=== PATIENT | female | born 1945 | race Caucasian/White ===

== ENCOUNTER 2017-08-09 18:57 | Emergency (ER) | payer MEDICARE, OTHER ==
[~2017-08-09] VITALS: Ht 162.6 cm; Wt 76.4 kg
[~2017-08-09 18:57] MED LIST: AMLO2.5T2 PO; BUSP10TA23 PO; CHOL2000 PO; EFFEXOR PO; FAMO-136 PO; FERR324T4 PO; FOLATE PO; LORA10TA7 PO; METO5TAB87 PO; MOME17N NASAL; MONT10TA21 PO; MULT-248 PO; OXYB10TA4 PO; OXYC-158 PO; TEMA15CA PO; THIA100T67; TIOT185 IH
[2017-08-09 19:13] LABS: GLUCOSE,POINT OF CARE 124 MG/DL (70-110)
[2017-08-09] MEDS ORDERED: VENL-67 PO (19:19)
[2017-08-09] MEDS ORDERED: FOLI1 PO (19:19)
[2017-08-09] MEDS ORDERED: CARV3 PO (19:19)
[2017-08-09] MEDS ORDERED: METF500T6 PO (19:19)
[2017-08-09] MEDS ORDERED: TRAZ-144 PO (19:19)
[2017-08-09] MEDS ORDERED: HYDROCODONE/ACETAMINOPHEN 5-325 MG TABLET PO ONE (19:45)
[2017-08-09 21:05] VITALS: BP 148/90
== END 2017-08-09 21:25 | disposition home or self-care (01) ==
LOC: EMS 18:58
DX: M54.5 Low back pain (principal); G89.29 Other chronic pain; F31.9 Bipolar disorder, unspecified; I11.0 Hypertensive heart disease with heart failure; I50.9 Heart failure, unspecified; E78.00 Pure hypercholesterolemia, unspecified; I25.10 Atherosclerotic heart disease of native coronary artery without angina pectoris; K21.9 Gastro-esophageal reflux disease without esophagitis; J44.9 Chronic obstructive pulmonary disease, unspecified; F17.210 Nicotine dependence, cigarettes, uncomplicated; Z88.8 Allergy status to other drugs, medicaments and biological substances
CPT/HCPCS: 99283

== ENCOUNTER 2017-08-24 18:43 | Emergency (ER) | payer MEDICARE, OTHER ==
[~2017-08-24] VITALS: Ht 162.6 cm; Wt 68.2 kg
[~2017-08-24 18:43] MED LIST changes: +CARV3 PO; -CHOL2000 PO; -EFFEXOR PO; -FERR324T4 PO; -FOLATE PO; +FOLI1 PO; -LORA10TA7 PO; +METF500T6 PO; -MOME17N NASAL; -MULT-248 PO; -OXYB10TA4 PO; -TEMA15CA PO; -THIA100T67; -TIOT185 IH; +TRAZ-144 PO; +VENL-67 PO
[2017-08-24] MEDS ORDERED: OxyCODONE HCL/ACETAMINOPHEN 5-325 MG TABLET PO ONE (19:30)
[2017-08-24 20:21] VITALS: BP 180/84
== END 2017-08-24 21:10 | disposition home or self-care (01) ==
LOC: EMS 18:45
DX: S86.911A Strain of unspecified muscle(s) and tendon(s) at lower leg level, right leg, initial encounter (principal); M17.0 Bilateral primary osteoarthritis of knee; I11.0 Hypertensive heart disease with heart failure; I50.9 Heart failure, unspecified; E78.00 Pure hypercholesterolemia, unspecified; I25.10 Atherosclerotic heart disease of native coronary artery without angina pectoris; K21.9 Gastro-esophageal reflux disease without esophagitis; J44.9 Chronic obstructive pulmonary disease, unspecified; F17.210 Nicotine dependence, cigarettes, uncomplicated; Z88.8 Allergy status to other drugs, medicaments and biological substances; X58.XXXA Exposure to other specified factors, initial encounter; Y93.89 Activity, other specified; Y92.89 Other specified places as the place of occurrence of the external cause; Y99.8 Other external cause status
CPT/HCPCS: 29505; 29530; 99283; 99406

== ENCOUNTER 2017-09-24 23:14 | Inpatient (IN) | payer MEDICARE, OTHER ==
[~2017-09-24] VITALS: Ht 170.2 cm; Wt 67.7 kg
[~2017-09-24 23:14] MED LIST changes: -TRAZ-144 PO; +TRAZ-219 PO
[2017-09-24 23:58] LABS: GLUCOSE,POINT OF CARE 119 MG/DL (70-110)
[2017-09-25 00:24] LABS: BASOPHILS % (AUTO) 1.3 % (0.0-2.0); EOSINOPHILS % (AUTO) 2.8 % (1.0-6.0); HEMATOCRIT 38.2 % (36-46); LYMPHOCYTES # (AUTO) 2.5 K/uL (1.0-4.8); LYMPHOCYTES % (AUTO) 25.4 % (22.0-44.0); MEAN CORPUSCULAR HEMOGLOBIN 29.1 pg (26.0-34.0); MEAN CORPUSCULAR HGB CONC 34.1 G/dL (31.0-37.0); MEAN CORPUSCULAR VOLUME 85 fL (80-100); MONOCYTES # (AUTO) 1.1 K/uL (0.1-1.0); MONOCYTES % (AUTO) 10.9 % (2.0-9.0); NEUTROPHILS # (AUTO) 5.9 K/uL (1.8-7.7); NEUTROPHILS % (AUTO) 59.6 % (40.0-70.0); PLATELET COUNT (AUTO) 286 K/uL (150-450); RED BLOOD CELL COUNT(AUTO) 4.48 MIL/uL (4.00-5.20); RED CELL DISTRIBUTION WIDTH 13.7 % (11.5-14.5)
[2017-09-25 00:28] LABS: APPEARANCE,URINE CLOUDY (CLEAR); BILIRUBIN,URINE NEGATIVE (NEGATIVE); GLUCOSE, URINE (UA) NEGATIVE (NEGATIVE); KETONES,URINE NEGATIVE (NEGATIVE); LEUKOCYTE ESTERASE ,URINE LARGE (NEGATIVE); NITRATE,URINE NEGATIVE (NEGATIVE); OCCULT BLOOD,URINE SMALL (NEGATIVE); PROTEIN,URINE NEGATIVE (NEGATIVE); UROBILINOGEN,URINE 0.2 mg/dL (<=1.0)
[2017-09-25 00:33] LABS: AMPHET/METH SCREEN,URINE NEGATIVE (NEGATIVE); BARBITURATE SCREEN, URINE NEGATIVE (NEGATIVE); BENZODIAZEPINES SCREEN,URINE NEGATIVE (NEGATIVE); CANNABINOID SCREEN,URINE NEGATIVE (NEGATIVE); COCAINE SCREEN,URINE NEGATIVE (NEGATIVE); METHADONE SCREEN, URINE NEGATIVE (NEGATIVE); OPIATE SCREEN,URINE NEGATIVE (NEGATIVE); PHENCYCLIDINE SCREEN,URINE NEGATIVE (NEGATIVE)
[2017-09-25 00:34] LABS: ANION GAP 7 mmol/L (8-16); CALCIUM, TOTAL 9.4 mg/dL (8.8-10.5); CARBON DIOXIDE 29 mmol/L (22-29); CHLORIDE 101 mmol/L (98-107); CREATININE 0.73 mg/dL (0.60-1.30); GLOMERULAR FILTR. RATE CALC > 60 mL/min (>60); GLUCOSE,RANDOM 117 mg/dL (70-110); POTASSIUM 3.3 mmol/L (3.5-5.1); SODIUM SERUM 137 mmol/L (136-145); UREA NITROGEN, BLOOD 10 mg/dL (7-18)
[2017-09-25 00:36] LABS: BACTERIA,URINE Rare /HPF (None Seen); SQUAMOUS EPITHELIAL CELL,UR Rare /LPF (None Seen)
[2017-09-25 00:39] LABS: ALANINE AMINOTRANSFERASE 25 U/L (12-78); ALBUMIN 3.3 g/dL (3.4-5.0); ALKALINE PHOSPHATASE 73 U/L (46-116); ASPARTATE AMINOTRANSFERASE 20 U/L (15-37); BILIRUBIN,TOTAL 0.2 mg/dL (0.1-1.0); TOTAL PROTEIN, SERUM 6.7 g/dL (6.4-8.2)
[2017-09-25] MEDS ORDERED: PIPERACILLIN/TAZO 3.375 GM/D5W 50 ML IV ONE (01:45)
[2017-09-25] MEDS ORDERED: 0.9% SODIUM CHLORIDE 10 ML SYRINGE IVP PRN (02:45)
[2017-09-25] MEDS ORDERED: ONDANSETRON HCL 4 MG/2 ML VIAL IVP PRN ×2 (02:45→08:30)
[2017-09-25] MEDS ORDERED: ACETAMINOPHEN 325 MG TABLET PO PRN (02:45)
[2017-09-25] MEDS ORDERED: GLUCAGON,HUMAN RECOMBINANT 1 MG VIAL IM PRN (08:30)
[2017-09-25] MEDS: IPRATROPIUM BROMIDE 0.5 MG/2.5 ML NEB SOLUTION NEB SCH ×3 (08:30→20:00)
[2017-09-25] MEDS ORDERED: INSULIN LISPRO 100 UNITS/ML SQ PRN (08:30)
[2017-09-25] MEDS ORDERED: ZOLPIDEM TARTRATE 5 MG TABLET PO PRN (08:30)
[2017-09-25] MEDS: ALBUTEROL SULFATE 2.5 MG/0.5 ML NEB SOLUTION NEB SCH ×3 (08:30→20:00)
[2017-09-25] MEDS ORDERED: AmLODIPine BESYLATE 2.5 MG TABLET PO SCH (09:00)
[2017-09-25 09:16] VITALS: BP 164/66
[2017-09-25 09:16] LABS: THYROID STIMULATING HORMONE 3.06 uIU/mL (0.36-3.74)
[2017-09-25] MEDS: HEPARIN SODIUM,PORCINE 5,000 UNITS/ML VIAL SQ SCH ×2 (09:45→17:05)
[2017-09-25] MEDS: CARVEDILOL 3.125 MG TABLET PO SCH (09:46)
[2017-09-25] MEDS: OxyCODONE HCL/ACETAMINOPHEN 5-325 MG TABLET PO SCH ×3 (09:46→20:32)
[2017-09-25] MEDS: FOLIC ACID 1 MG TABLET PO SCH (09:46)
[2017-09-25] MEDS: AmLODIPine BESYLATE 5 MG TABLET PO SCH (09:47)
[2017-09-25] MEDS: IPRATROPIUM BROMIDE 0.5 MG/2.5 ML NEB SOLUTION NEB PRN (11:20)
[2017-09-25] MEDS: ALBUTEROL SULFATE 2.5 MG/0.5 ML NEB SOLUTION NEB PRN (11:20)
[2017-09-25 11:44] VITALS: BP 142/57
[2017-09-25 12:04] LABS: GLUCOMETER DEV NAME(LOC) 6N 1E; GLUCOSE,POINT OF CARE 114 MG/DL (70-110)
[2017-09-25] MEDS: VENLAFAXINE HCL 75 MG ER CAPSULE PO SCH (14:39)
[2017-09-25] MEDS: MONTELUKAST SODIUM 10 MG TABLET PO SCH (14:40)
[2017-09-25] MEDS: BusPIRone HCL 10 MG TABLET PO SCH ×3 (14:40→20:31)
[2017-09-25] MEDS: METOCLOPRAMIDE HCL 5 MG TABLET PO SCH ×3 (14:40→20:31)
[2017-09-25 15:43] VITALS: BP 124/59
[2017-09-25] MEDS: MetFORMIN HCL 500 MG TABLET PO SCH (17:05)
[2017-09-25 19:59] VITALS: BP 150/61
[2017-09-25 20:23] LABS: GLUCOMETER DEV NAME(LOC) 6N 2D; GLUCOSE,POINT OF CARE 105 MG/DL (70-110)
[2017-09-25] MEDS: TraZODone HCL 50 MG TABLET PO SCH (20:32)
[2017-09-25] MEDS ORDERED: DEXTROSE 50%-WATER 25 GM/50 ML SYG IVP PRN (21:00)
[2017-09-25 23:50] VITALS: BP 138/65
[2017-09-26] MEDS: HEPARIN SODIUM,PORCINE 5,000 UNITS/ML VIAL SQ SCH ×3 (00:14→16:30)
[2017-09-26 01:48] LABS: GLUCOMETER DEV NAME(LOC) 6N 1E; GLUCOSE,POINT OF CARE 133 MG/DL (70-110)
[2017-09-26] MEDS: ALBUTEROL SULFATE 2.5 MG/0.5 ML NEB SOLUTION NEB SCH ×4 (02:00→20:00)
[2017-09-26] MEDS: IPRATROPIUM BROMIDE 0.5 MG/2.5 ML NEB SOLUTION NEB SCH ×4 (02:00→20:00)
[2017-09-26] MEDS: OxyCODONE HCL/ACETAMINOPHEN 5-325 MG TABLET PO SCH ×4 (02:30→20:15)
[2017-09-26 06:10] LABS: BASOPHILS % (AUTO) 0.9 % (0.0-2.0); EOSINOPHILS % (AUTO) 3.6 % (1.0-6.0); HEMATOCRIT 36.5 % (36-46); HEMOGLOBIN 12.5 g/dL (12.0-16.0); LYMPHOCYTES % (AUTO) 35.5 % (22.0-44.0); MEAN CORPUSCULAR HEMOGLOBIN 29.8 pg (26.0-34.0); MEAN CORPUSCULAR HGB CONC 34.4 G/dL (31.0-37.0); MEAN CORPUSCULAR VOLUME 87 fL (80-100); MONOCYTES % (AUTO) 11.6 % (2.0-9.0); NEUTROPHILS % (AUTO) 48.4 % (40.0-70.0); PLATELET COUNT (AUTO) 269 K/uL (150-450); RED BLOOD CELL COUNT(AUTO) 4.21 MIL/uL (4.00-5.20); RED CELL DISTRIBUTION WIDTH 13.7 % (11.5-14.5)
[2017-09-26 06:15] LABS: ANION GAP 6 mmol/L (8-16); CALCIUM, TOTAL 9.3 mg/dL (8.8-10.5); CARBON DIOXIDE 29 mmol/L (22-29); CHLORIDE 103 mmol/L (98-107); CREATININE 0.81 mg/dL (0.60-1.30); GLOMERULAR FILTR. RATE CALC > 60 mL/min (>60); GLUCOSE,RANDOM 99 mg/dL (70-110); POTASSIUM 3.9 mmol/L (3.5-5.1); SODIUM SERUM 138 mmol/L (136-145); UREA NITROGEN, BLOOD 16 mg/dL (7-18)
[2017-09-26 07:04] LABS: GLUCOMETER DEV NAME(LOC) 6N 1E; GLUCOSE,POINT OF CARE 100 MG/DL (70-110)
[2017-09-26 07:45] VITALS: BP 141/57
[2017-09-26] MEDS: CARVEDILOL 3.125 MG TABLET PO SCH (08:42)
[2017-09-26] MEDS: AmLODIPine BESYLATE 5 MG TABLET PO SCH (08:42)
[2017-09-26] MEDS: FOLIC ACID 1 MG TABLET PO SCH (08:42)
[2017-09-26] MEDS: MetFORMIN HCL 500 MG TABLET PO SCH ×2 (08:42→18:12)
[2017-09-26] MEDS: VENLAFAXINE HCL 75 MG ER CAPSULE PO SCH (08:43)
[2017-09-26] MEDS: METOCLOPRAMIDE HCL 5 MG TABLET PO SCH ×3 (08:43→20:15)
[2017-09-26] MEDS: MONTELUKAST SODIUM 10 MG TABLET PO SCH (08:43)
[2017-09-26] MEDS: BusPIRone HCL 10 MG TABLET PO SCH ×3 (08:43→20:15)
[2017-09-26] MEDS ORDERED: MAGNESIUM SULFATE 4 GM/WATER 100 ML IV PRN (10:15)
[2017-09-26] MEDS ORDERED: MAGNESIUM SULFATE 2 GM/WATER 50 ML IV PRN (10:15)
[2017-09-26] MEDS: MAGNESIUM OXIDE 400 MG TABLET PO PRN ×3 (10:49→18:12)
[2017-09-26 11:18] VITALS: BP 126/64
[2017-09-26] MEDS: INSULIN LISPRO 100 UNITS/ML SQ PRN ×2 (11:35→17:12)
[2017-09-26] MEDS: CefTRIAXone SODIUM 1 GM in DEXTROSE 5%-WATER 10 ML IV SCH (11:42)
[2017-09-26 15:18] LABS: GLUCOMETER DEV NAME(LOC) 6N 1E; GLUCOSE,POINT OF CARE 88 MG/DL (70-110)
[2017-09-26 15:55] VITALS: BP 147/68
[2017-09-26 17:59] LABS: GLUCOMETER DEV NAME(LOC) 6N 1E; GLUCOSE,POINT OF CARE 74 MG/DL (70-110)
[2017-09-26 19:00] VITALS: BP 141/60
[2017-09-26] MEDS: TraZODone HCL 50 MG TABLET PO SCH (20:15)
[2017-09-26] MEDS: ALBUTEROL SULFATE 2.5 MG/0.5 ML NEB SOLUTION NEB PRN (21:34)
[2017-09-26] MEDS: IPRATROPIUM BROMIDE 0.5 MG/2.5 ML NEB SOLUTION NEB PRN (21:34)
[2017-09-26 21:59] LABS: GLUCOMETER DEV NAME(LOC) 6N 1E; GLUCOSE,POINT OF CARE 138 MG/DL (70-110)
[2017-09-27] VITALS (7 sets, daily range): BP systolic 128–147; BP diastolic 54–101
[2017-09-27] MEDS: HEPARIN SODIUM,PORCINE 5,000 UNITS/ML VIAL SQ SCH ×4 (00:12→23:26)
[2017-09-27] MEDS: IPRATROPIUM BROMIDE 0.5 MG/2.5 ML NEB SOLUTION NEB SCH ×4 (02:00→19:53)
[2017-09-27] MEDS: ALBUTEROL SULFATE 2.5 MG/0.5 ML NEB SOLUTION NEB SCH ×4 (02:00→19:52)
[2017-09-27] MEDS: OxyCODONE HCL/ACETAMINOPHEN 5-325 MG TABLET PO SCH ×4 (02:30→20:10)
[2017-09-27 06:09] LABS: BASOPHILS % (AUTO) 1.3 % (0.0-2.0); EOSINOPHILS % (AUTO) 3.7 % (1.0-6.0); HEMATOCRIT 35.7 % (36-46); HEMOGLOBIN 12.3 g/dL (12.0-16.0); LYMPHOCYTES % (AUTO) 40.8 % (22.0-44.0); MEAN CORPUSCULAR HEMOGLOBIN 29.5 pg (26.0-34.0); MEAN CORPUSCULAR HGB CONC 34.4 G/dL (31.0-37.0); MEAN CORPUSCULAR VOLUME 86 fL (80-100); MONOCYTES # (AUTO) 0.7 K/uL (0.1-1.0); MONOCYTES % (AUTO) 9.5 % (2.0-9.0); NEUTROPHILS # (AUTO) 3.3 K/uL (1.8-7.7); NEUTROPHILS % (AUTO) 44.7 % (40.0-70.0); PLATELET COUNT (AUTO) 288 K/uL (150-450); RED BLOOD CELL COUNT(AUTO) 4.16 MIL/uL (4.00-5.20); RED CELL DISTRIBUTION WIDTH 13.4 % (11.5-14.5)
[2017-09-27 06:20] LABS: ANION GAP 6 mmol/L (8-16); CALCIUM, TOTAL 9.5 mg/dL (8.8-10.5); CARBON DIOXIDE 30 mmol/L (22-29); CHLORIDE 102 mmol/L (98-107); CREATININE 0.71 mg/dL (0.60-1.30); GLOMERULAR FILTR. RATE CALC > 60 mL/min (>60); GLUCOSE,RANDOM 87 mg/dL (70-110); POTASSIUM 4.4 mmol/L (3.5-5.1); SODIUM SERUM 138 mmol/L (136-145); UREA NITROGEN, BLOOD 15 mg/dL (7-18)
[2017-09-27 06:58] LABS: GLUCOMETER DEV NAME(LOC) 6N 2D; GLUCOSE,POINT OF CARE 90 MG/DL (70-110)
[2017-09-27] MEDS: MetFORMIN HCL 500 MG TABLET PO SCH ×2 (08:31→18:05)
[2017-09-27] MEDS: BusPIRone HCL 10 MG TABLET PO SCH ×3 (08:33→20:11)
[2017-09-27] MEDS: FOLIC ACID 1 MG TABLET PO SCH (08:34)
[2017-09-27] MEDS: AmLODIPine BESYLATE 5 MG TABLET PO SCH (08:34)
[2017-09-27] MEDS: VENLAFAXINE HCL 75 MG ER CAPSULE PO SCH (08:34)
[2017-09-27] MEDS: CARVEDILOL 3.125 MG TABLET PO SCH (08:34)
[2017-09-27] MEDS: MONTELUKAST SODIUM 10 MG TABLET PO SCH (08:35)
[2017-09-27] MEDS: METOCLOPRAMIDE HCL 5 MG TABLET PO SCH ×3 (08:35→20:10)
[2017-09-27] MEDS: CefTRIAXone SODIUM 1 GM in DEXTROSE 5%-WATER 10 ML IV SCH (10:41)
[2017-09-27 11:34] LABS: GLUCOMETER DEV NAME(LOC) 6N 2D; GLUCOSE,POINT OF CARE 192 MG/DL (70-110)
[2017-09-27] MEDS: INSULIN LISPRO 100 UNITS/ML SQ PRN ×2 (11:42→20:16)
[2017-09-27 17:49] LABS: GLUCOMETER DEV NAME(LOC) 6N 1E; GLUCOSE,POINT OF CARE 115 MG/DL (70-110)
[2017-09-27] MEDS: TraZODone HCL 50 MG TABLET PO SCH (20:11)
[2017-09-27 20:43] LABS: GLUCOMETER DEV NAME(LOC) 6N 2D; GLUCOSE,POINT OF CARE 146 MG/DL (70-110)
[2017-09-28] MEDS: OxyCODONE HCL/ACETAMINOPHEN 5-325 MG TABLET PO SCH ×4 (02:18→20:29)
[2017-09-28] MEDS: IPRATROPIUM BROMIDE 0.5 MG/2.5 ML NEB SOLUTION NEB SCH ×4 (03:25→19:18)
[2017-09-28] MEDS: ALBUTEROL SULFATE 2.5 MG/0.5 ML NEB SOLUTION NEB SCH ×4 (03:25→19:19)
[2017-09-28 04:00] VITALS: BP 122/55
[2017-09-28 05:33] LABS: GLUCOMETER DEV NAME(LOC) 6N 1E; GLUCOSE,POINT OF CARE 94 MG/DL (70-110)
[2017-09-28 07:28] VITALS: BP 146/66
[2017-09-28 09:05] LABS: BASOPHILS % (AUTO) 1.2 % (0.0-2.0); EOSINOPHILS % (AUTO) 3.5 % (1.0-6.0); HEMATOCRIT 36.1 % (36-46); HEMOGLOBIN 12.2 g/dL (12.0-16.0); LYMPHOCYTES # (AUTO) 2.4 K/uL (1.0-4.8); MEAN CORPUSCULAR HEMOGLOBIN 29.1 pg (26.0-34.0); MEAN CORPUSCULAR HGB CONC 33.9 G/dL (31.0-37.0); MEAN CORPUSCULAR VOLUME 86 fL (80-100); MONOCYTES # (AUTO) 0.6 K/uL (0.1-1.0); MONOCYTES % (AUTO) 9.2 % (2.0-9.0); NEUTROPHILS # (AUTO) 3.1 K/uL (1.8-7.7); NEUTROPHILS % (AUTO) 48.1 % (40.0-70.0); PLATELET COUNT (AUTO) 288 K/uL (150-450); RED CELL DISTRIBUTION WIDTH 13.6 % (11.5-14.5)
[2017-09-28 09:30] LABS: ANION GAP 3 mmol/L (8-16); CALCIUM, TOTAL 9.4 mg/dL (8.8-10.5); CARBON DIOXIDE 32 mmol/L (22-29); CHLORIDE 102 mmol/L (98-107); CREATININE 0.79 mg/dL (0.60-1.30); GLOMERULAR FILTR. RATE CALC > 60 mL/min (>60); GLUCOSE,RANDOM 94 mg/dL (70-110); POTASSIUM 4.2 mmol/L (3.5-5.1); SODIUM SERUM 137 mmol/L (136-145); UREA NITROGEN, BLOOD 17 mg/dL (7-18)
[2017-09-28] MEDS: AmLODIPine BESYLATE 5 MG TABLET PO SCH (09:52)
[2017-09-28] MEDS: CARVEDILOL 3.125 MG TABLET PO SCH (09:52)
[2017-09-28] MEDS: MetFORMIN HCL 500 MG TABLET PO SCH ×2 (09:52→18:02)
[2017-09-28] MEDS: FOLIC ACID 1 MG TABLET PO SCH (09:52)
[2017-09-28] MEDS: METOCLOPRAMIDE HCL 5 MG TABLET PO SCH ×3 (09:53→20:30)
[2017-09-28] MEDS: VENLAFAXINE HCL 75 MG ER CAPSULE PO SCH (09:53)
[2017-09-28] MEDS: MONTELUKAST SODIUM 10 MG TABLET PO SCH (09:53)
[2017-09-28] MEDS: HEPARIN SODIUM,PORCINE 5,000 UNITS/ML VIAL SQ SCH ×2 (09:53→17:18)
[2017-09-28] MEDS: BusPIRone HCL 10 MG TABLET PO SCH ×3 (09:53→20:30)
[2017-09-28] MEDS: CefTRIAXone SODIUM 1 GM in DEXTROSE 5%-WATER 10 ML IV SCH (09:55)
[2017-09-28 12:24] LABS: GLUCOMETER DEV NAME(LOC) 6N 2D; GLUCOSE,POINT OF CARE 108 MG/DL (70-110)
[2017-09-28 12:30] VITALS: BP 122/56
[2017-09-28 15:57] VITALS: BP 131/63
[2017-09-28] MEDS: MAGNESIUM HYDROXIDE SUSPENSION 30 ML UDCUP PO PRN (17:44)
[2017-09-28 18:54] LABS: GLUCOMETER DEV NAME(LOC) 6N 2D; GLUCOSE,POINT OF CARE 122 MG/DL (70-110)
[2017-09-28 19:26] VITALS: BP 154/67
[2017-09-28] MEDS: TraZODone HCL 50 MG TABLET PO SCH (20:30)
[2017-09-28] MEDS: INSULIN LISPRO 100 UNITS/ML SQ PRN (20:37)
[2017-09-28 21:13] LABS: GLUCOMETER DEV NAME(LOC) 6N 2D; GLUCOSE,POINT OF CARE 144 MG/DL (70-110)
[2017-09-28 23:52] VITALS: BP 95/43
[2017-09-29] MEDS: HEPARIN SODIUM,PORCINE 5,000 UNITS/ML VIAL SQ SCH ×4 (00:10→23:09)
[2017-09-29] MEDS: ALBUTEROL SULFATE 2.5 MG/0.5 ML NEB SOLUTION NEB SCH ×4 (02:00→19:54)
[2017-09-29] MEDS: IPRATROPIUM BROMIDE 0.5 MG/2.5 ML NEB SOLUTION NEB SCH ×4 (02:00→19:54)
[2017-09-29] MEDS: OxyCODONE HCL/ACETAMINOPHEN 5-325 MG TABLET PO SCH ×4 (02:30→19:39)
[2017-09-29 05:17] VITALS: BP 118/46
[2017-09-29 07:54] LABS: GLUCOMETER DEV NAME(LOC) 6N 1E; GLUCOSE,POINT OF CARE 91 MG/DL (70-110)
[2017-09-29 08:00] VITALS: BP 147/57
[2017-09-29] MEDS: FOLIC ACID 1 MG TABLET PO SCH (08:47)
[2017-09-29] MEDS: METOCLOPRAMIDE HCL 5 MG TABLET PO SCH ×3 (08:47→19:38)
[2017-09-29] MEDS: MONTELUKAST SODIUM 10 MG TABLET PO SCH (08:47)
[2017-09-29] MEDS: VENLAFAXINE HCL 75 MG ER CAPSULE PO SCH (08:47)
[2017-09-29] MEDS: BusPIRone HCL 10 MG TABLET PO SCH ×3 (08:47→19:39)
[2017-09-29] MEDS: AmLODIPine BESYLATE 5 MG TABLET PO SCH (08:47)
[2017-09-29] MEDS: MetFORMIN HCL 500 MG TABLET PO SCH ×2 (08:47→18:16)
[2017-09-29] MEDS: CARVEDILOL 3.125 MG TABLET PO SCH (08:47)
[2017-09-29] MEDS: MAGNESIUM HYDROXIDE SUSPENSION 30 ML UDCUP PO PRN (09:13)
[2017-09-29] MEDS: CefTRIAXone SODIUM 1 GM in DEXTROSE 5%-WATER 10 ML IV SCH (11:08)
[2017-09-29 11:36] VITALS: BP 151/72
[2017-09-29 15:48] VITALS: BP 139/61
[2017-09-29] MEDS: TraZODone HCL 50 MG TABLET PO SCH (19:39)
[2017-09-29 19:43] VITALS: BP 141/74
[2017-09-29 20:02] LABS: GLUCOMETER DEV NAME(LOC) 6N 1E; GLUCOSE,POINT OF CARE 106 MG/DL (70-110)
[2017-09-29 20:02] LABS: GLUCOMETER DEV NAME(LOC) 6N 1E; GLUCOSE,POINT OF CARE 99 MG/DL (70-110)
[2017-09-29] MEDS: INSULIN LISPRO 100 UNITS/ML SQ PRN (20:09)
[2017-09-29 20:24] LABS: GLUCOMETER DEV NAME(LOC) 6N 2D; GLUCOSE,POINT OF CARE 175 MG/DL (70-110)
[2017-09-30 00:15] VITALS: BP 125/68
[2017-09-30] MEDS: IPRATROPIUM BROMIDE 0.5 MG/2.5 ML NEB SOLUTION NEB SCH ×5 (02:00→20:24)
[2017-09-30] MEDS: ALBUTEROL SULFATE 2.5 MG/0.5 ML NEB SOLUTION NEB SCH ×5 (02:00→20:24)
[2017-09-30] MEDS: OxyCODONE HCL/ACETAMINOPHEN 5-325 MG TABLET PO SCH ×4 (02:35→20:13)
[2017-09-30 05:03] VITALS: BP 128/61
[2017-09-30 06:35] LABS: GLUCOMETER DEV NAME(LOC) 6N 2D; GLUCOSE,POINT OF CARE 114 MG/DL (70-110)
[2017-09-30 07:00] VITALS: BP 147/56
[2017-09-30] MEDS: HEPARIN SODIUM,PORCINE 5,000 UNITS/ML VIAL SQ SCH ×3 (08:00→23:40)
[2017-09-30] MEDS: MetFORMIN HCL 500 MG TABLET PO SCH ×2 (09:06→17:32)
[2017-09-30] MEDS: CARVEDILOL 3.125 MG TABLET PO SCH (09:07)
[2017-09-30] MEDS: BusPIRone HCL 10 MG TABLET PO SCH ×3 (09:07→20:10)
[2017-09-30] MEDS: AmLODIPine BESYLATE 5 MG TABLET PO SCH (09:08)
[2017-09-30] MEDS: VENLAFAXINE HCL 75 MG ER CAPSULE PO SCH (09:08)
[2017-09-30] MEDS: FOLIC ACID 1 MG TABLET PO SCH (09:08)
[2017-09-30] MEDS: METOCLOPRAMIDE HCL 5 MG TABLET PO SCH ×3 (09:09→20:10)
[2017-09-30] MEDS: MONTELUKAST SODIUM 10 MG TABLET PO SCH (09:09)
[2017-09-30] MEDS: CefTRIAXone SODIUM 1 GM in DEXTROSE 5%-WATER 10 ML IV SCH (11:17)
[2017-09-30 11:21] VITALS: BP 125/63
[2017-09-30 12:24] LABS: GLUCOMETER DEV NAME(LOC) 6N 1E; GLUCOSE,POINT OF CARE 108 MG/DL (70-110)
[2017-09-30 15:15] VITALS: BP 133/64
[2017-09-30] MEDS ORDERED: BISACODYL 10 MG RECTAL RECTAL SUPPOSITORY PR PRN (16:00)
[2017-09-30 17:54] LABS: GLUCOMETER DEV NAME(LOC) 6N 1E; GLUCOSE,POINT OF CARE 95 MG/DL (70-110)
[2017-09-30 19:41] VITALS: BP 141/72
[2017-09-30] MEDS: TraZODone HCL 50 MG TABLET PO SCH (20:10)
[2017-09-30 20:53] LABS: GLUCOMETER DEV NAME(LOC) 6N 2D; GLUCOSE,POINT OF CARE 110 MG/DL (70-110)
[2017-10-01 00:15] VITALS: BP 118/65
[2017-10-01] MEDS: IPRATROPIUM BROMIDE 0.5 MG/2.5 ML NEB SOLUTION NEB SCH ×4 (02:00→20:40)
[2017-10-01] MEDS: ALBUTEROL SULFATE 2.5 MG/0.5 ML NEB SOLUTION NEB SCH ×4 (02:00→20:40)
[2017-10-01] MEDS: OxyCODONE HCL/ACETAMINOPHEN 5-325 MG TABLET PO SCH ×4 (02:30→19:50)
[2017-10-01 04:25] VITALS: BP 121/59
[2017-10-01 06:53] LABS: GLUCOMETER DEV NAME(LOC) 6N 1E; GLUCOSE,POINT OF CARE 102 MG/DL (70-110)
[2017-10-01 08:00] VITALS: BP 133/66
[2017-10-01] MEDS: METOCLOPRAMIDE HCL 5 MG TABLET PO SCH ×3 (08:57→19:49)
[2017-10-01] MEDS: MONTELUKAST SODIUM 10 MG TABLET PO SCH (08:58)
[2017-10-01] MEDS: HEPARIN SODIUM,PORCINE 5,000 UNITS/ML VIAL SQ SCH ×3 (08:58→23:38)
[2017-10-01] MEDS: MetFORMIN HCL 500 MG TABLET PO SCH ×2 (08:58→17:15)
[2017-10-01] MEDS: AmLODIPine BESYLATE 5 MG TABLET PO SCH (08:58)
[2017-10-01] MEDS: FOLIC ACID 1 MG TABLET PO SCH (08:58)
[2017-10-01] MEDS: VENLAFAXINE HCL 75 MG ER CAPSULE PO SCH (08:58)
[2017-10-01] MEDS: CARVEDILOL 3.125 MG TABLET PO SCH (08:58)
[2017-10-01] MEDS: BusPIRone HCL 10 MG TABLET PO SCH ×3 (08:58→19:49)
[2017-10-01 12:26] VITALS: BP 138/63
[2017-10-01 12:53] LABS: GLUCOMETER DEV NAME(LOC) 6N 2D; GLUCOSE,POINT OF CARE 112 MG/DL (70-110)
[2017-10-01 15:37] VITALS: BP 146/74
[2017-10-01] MEDS: CefTRIAXone SODIUM 1 GM in DEXTROSE 5%-WATER 10 ML IV SCH (17:12)
[2017-10-01] MEDS: TraZODone HCL 50 MG TABLET PO SCH (19:49)
[2017-10-01 19:53] LABS: GLUCOMETER DEV NAME(LOC) 6N 2D; GLUCOSE,POINT OF CARE 94 MG/DL (70-110)
[2017-10-01] MEDS: INSULIN LISPRO 100 UNITS/ML SQ PRN (19:53)
[2017-10-01 20:20] VITALS: BP 131/87
[2017-10-02 00:16] VITALS: BP 118/63
[2017-10-02] MEDS: ALBUTEROL SULFATE 2.5 MG/0.5 ML NEB SOLUTION NEB SCH ×3 (02:00→19:36)
[2017-10-02] MEDS: IPRATROPIUM BROMIDE 0.5 MG/2.5 ML NEB SOLUTION NEB SCH ×3 (02:00→19:36)
[2017-10-02] MEDS: OxyCODONE HCL/ACETAMINOPHEN 5-325 MG TABLET PO SCH ×4 (02:30→20:24)
[2017-10-02 04:00] VITALS: BP 109/74
[2017-10-02 06:43] LABS: GLUCOMETER DEV NAME(LOC) 6N 1E; GLUCOSE,POINT OF CARE 221 MG/DL (70-110)
[2017-10-02 06:44] LABS: GLUCOMETER DEV NAME(LOC) 6N 1E; GLUCOSE,POINT OF CARE 79 MG/DL (70-110)
[2017-10-02 08:00] VITALS: BP 147/63
[2017-10-02] MEDS: CARVEDILOL 3.125 MG TABLET PO SCH (10:30)
[2017-10-02] MEDS: MetFORMIN HCL 500 MG TABLET PO SCH ×2 (10:30→18:13)
[2017-10-02] MEDS: BusPIRone HCL 10 MG TABLET PO SCH ×3 (10:31→20:25)
[2017-10-02] MEDS: AmLODIPine BESYLATE 5 MG TABLET PO SCH (10:31)
[2017-10-02] MEDS: MONTELUKAST SODIUM 10 MG TABLET PO SCH (10:31)
[2017-10-02] MEDS: METOCLOPRAMIDE HCL 5 MG TABLET PO SCH ×3 (10:31→20:24)
[2017-10-02] MEDS: VENLAFAXINE HCL 75 MG ER CAPSULE PO SCH (10:31)
[2017-10-02] MEDS: FOLIC ACID 1 MG TABLET PO SCH (10:31)
[2017-10-02] MEDS: HEPARIN SODIUM,PORCINE 5,000 UNITS/ML VIAL SQ SCH ×2 (10:33→16:30)
[2017-10-02] MEDS: CefTRIAXone SODIUM 1 GM in DEXTROSE 5%-WATER 10 ML IV SCH (11:19)
[2017-10-02 11:39] LABS: GLUCOMETER DEV NAME(LOC) 6N 2D; GLUCOSE,POINT OF CARE 179 MG/DL (70-110)
[2017-10-02] MEDS: INSULIN LISPRO 100 UNITS/ML SQ PRN (11:54)
[2017-10-02 12:04] VITALS: BP 124/58
[2017-10-02 15:45] VITALS: BP 140/55
[2017-10-02 17:49] LABS: GLUCOMETER DEV NAME(LOC) 6N 2D; GLUCOSE,POINT OF CARE 96 MG/DL (70-110)
[2017-10-02 19:55] VITALS: BP 141/69
[2017-10-02] MEDS: TraZODone HCL 50 MG TABLET PO SCH (20:25)
[2017-10-02 21:53] LABS: GLUCOMETER DEV NAME(LOC) 6N 2D; GLUCOSE,POINT OF CARE 131 MG/DL (70-110)
[2017-10-03] VITALS (7 sets, daily range): BP systolic 121–158; BP diastolic 48–72
[2017-10-03] MEDS: HEPARIN SODIUM,PORCINE 5,000 UNITS/ML VIAL SQ SCH ×4 (00:14→23:19)
[2017-10-03] MEDS: ALBUTEROL SULFATE 2.5 MG/0.5 ML NEB SOLUTION NEB SCH ×4 (02:00→20:48)
[2017-10-03] MEDS: IPRATROPIUM BROMIDE 0.5 MG/2.5 ML NEB SOLUTION NEB SCH ×4 (02:00→20:49)
[2017-10-03] MEDS: OxyCODONE HCL/ACETAMINOPHEN 5-325 MG TABLET PO SCH ×4 (02:30→20:14)
[2017-10-03 06:49] LABS: GLUCOMETER DEV NAME(LOC) 6N 1E; GLUCOSE,POINT OF CARE 106 MG/DL (70-110)
[2017-10-03] MEDS: MetFORMIN HCL 500 MG TABLET PO SCH ×2 (08:22→17:02)
[2017-10-03] MEDS: BusPIRone HCL 10 MG TABLET PO SCH ×3 (08:22→20:14)
[2017-10-03] MEDS: AmLODIPine BESYLATE 5 MG TABLET PO SCH (08:22)
[2017-10-03] MEDS: METOCLOPRAMIDE HCL 5 MG TABLET PO SCH ×3 (08:22→20:14)
[2017-10-03] MEDS: MONTELUKAST SODIUM 10 MG TABLET PO SCH (08:22)
[2017-10-03] MEDS: VENLAFAXINE HCL 75 MG ER CAPSULE PO SCH (08:22)
[2017-10-03] MEDS: CARVEDILOL 3.125 MG TABLET PO SCH (08:23)
[2017-10-03] MEDS: FOLIC ACID 1 MG TABLET PO SCH (08:24)
[2017-10-03 14:04] LABS: GLUCOMETER DEV NAME(LOC) 6N 2D; GLUCOSE,POINT OF CARE 94 MG/DL (70-110)
[2017-10-03 19:19] LABS: GLUCOMETER DEV NAME(LOC) 6N 2D; GLUCOSE,POINT OF CARE 114 MG/DL (70-110)
[2017-10-03] MEDS: TraZODone HCL 50 MG TABLET PO SCH (20:14)
[2017-10-03] MEDS: INSULIN LISPRO 100 UNITS/ML SQ PRN (20:15)
[2017-10-03 23:13] LABS: GLUCOMETER DEV NAME(LOC) 6N 1E; GLUCOSE,POINT OF CARE 199 MG/DL (70-110)
[2017-10-04] MEDS: IPRATROPIUM BROMIDE 0.5 MG/2.5 ML NEB SOLUTION NEB SCH ×4 (02:00→20:18)
[2017-10-04] MEDS: ALBUTEROL SULFATE 2.5 MG/0.5 ML NEB SOLUTION NEB SCH ×4 (02:00→20:18)
[2017-10-04] MEDS: OxyCODONE HCL/ACETAMINOPHEN 5-325 MG TABLET PO SCH ×4 (02:07→19:41)
[2017-10-04 04:35] VITALS: BP 130/61
[2017-10-04 06:03] LABS: GLUCOMETER DEV NAME(LOC) 6N 1E; GLUCOSE,POINT OF CARE 91 MG/DL (70-110)
[2017-10-04 08:00] VITALS: BP 137/65
[2017-10-04] MEDS: HEPARIN SODIUM,PORCINE 5,000 UNITS/ML VIAL SQ SCH ×2 (09:11→15:25)
[2017-10-04] MEDS: VENLAFAXINE HCL 75 MG ER CAPSULE PO SCH (09:12)
[2017-10-04] MEDS: METOCLOPRAMIDE HCL 5 MG TABLET PO SCH ×3 (09:12→19:41)
[2017-10-04] MEDS: MONTELUKAST SODIUM 10 MG TABLET PO SCH (09:12)
[2017-10-04] MEDS: CARVEDILOL 3.125 MG TABLET PO SCH (09:12)
[2017-10-04] MEDS: MetFORMIN HCL 500 MG TABLET PO SCH ×2 (09:12→17:05)
[2017-10-04] MEDS: FOLIC ACID 1 MG TABLET PO SCH (09:12)
[2017-10-04] MEDS: AmLODIPine BESYLATE 5 MG TABLET PO SCH (09:12)
[2017-10-04] MEDS: BusPIRone HCL 10 MG TABLET PO SCH ×3 (09:12→19:41)
[2017-10-04 11:40] VITALS: BP 128/60
[2017-10-04 14:03] LABS: GLUCOMETER DEV NAME(LOC) 6N 2D; GLUCOSE,POINT OF CARE 126 MG/DL (70-110)
[2017-10-04 15:10] VITALS: BP 122/62
[2017-10-04 19:37] VITALS: BP 141/64
[2017-10-04] MEDS: TraZODone HCL 50 MG TABLET PO SCH (19:41)
[2017-10-04 20:33] LABS: GLUCOMETER DEV NAME(LOC) 6N 2D; GLUCOSE,POINT OF CARE 146 MG/DL (70-110)
[2017-10-04 20:33] LABS: GLUCOMETER DEV NAME(LOC) 6N 2D; GLUCOSE,POINT OF CARE 94 MG/DL (70-110)
[2017-10-04 23:04] VITALS: BP 136/68
[2017-10-05] MEDS: HEPARIN SODIUM,PORCINE 5,000 UNITS/ML VIAL SQ SCH ×3 (00:06→16:25)
[2017-10-05] MEDS: ALBUTEROL SULFATE 2.5 MG/0.5 ML NEB SOLUTION NEB SCH ×4 (02:26→20:00)
[2017-10-05] MEDS: IPRATROPIUM BROMIDE 0.5 MG/2.5 ML NEB SOLUTION NEB SCH ×4 (02:27→20:00)
[2017-10-05] MEDS: OxyCODONE HCL/ACETAMINOPHEN 5-325 MG TABLET PO SCH ×4 (02:48→20:34)
[2017-10-05 04:07] VITALS: BP 134/60
[2017-10-05 07:48] VITALS: BP 157/65
[2017-10-05] MEDS: VENLAFAXINE HCL 75 MG ER CAPSULE PO SCH (08:00)
[2017-10-05] MEDS: AmLODIPine BESYLATE 5 MG TABLET PO SCH (08:00)
[2017-10-05] MEDS: MetFORMIN HCL 500 MG TABLET PO SCH ×2 (08:00→17:10)
[2017-10-05] MEDS: FOLIC ACID 1 MG TABLET PO SCH (08:00)
[2017-10-05] MEDS: MONTELUKAST SODIUM 10 MG TABLET PO SCH (08:00)
[2017-10-05] MEDS: BusPIRone HCL 10 MG TABLET PO SCH ×3 (08:00→20:34)
[2017-10-05] MEDS: METOCLOPRAMIDE HCL 5 MG TABLET PO SCH ×3 (08:01→20:34)
[2017-10-05] MEDS: CARVEDILOL 3.125 MG TABLET PO SCH (08:01)
[2017-10-05 08:43] LABS: GLUCOMETER DEV NAME(LOC) 6N 1E; GLUCOSE,POINT OF CARE 129 MG/DL (70-110)
[2017-10-05 11:42] VITALS: BP 130/57
[2017-10-05 13:39] LABS: GLUCOMETER DEV NAME(LOC) 6N 1E; GLUCOSE,POINT OF CARE 118 MG/DL (70-110)
[2017-10-05 15:45] VITALS: BP 126/58
[2017-10-05 17:59] LABS: GLUCOMETER DEV NAME(LOC) 6N 1E; GLUCOSE,POINT OF CARE 87 MG/DL (70-110)
[2017-10-05 19:17] VITALS: BP 135/65
[2017-10-05] MEDS: TraZODone HCL 50 MG TABLET PO SCH (20:34)
[2017-10-05 21:53] LABS: GLUCOMETER DEV NAME(LOC) 6N 2D; GLUCOSE,POINT OF CARE 80 MG/DL (70-110)
[2017-10-05 23:52] VITALS: BP 126/59
[2017-10-06] MEDS: HEPARIN SODIUM,PORCINE 5,000 UNITS/ML VIAL SQ SCH ×4 (00:15→23:25)
[2017-10-06] MEDS: ALBUTEROL SULFATE 2.5 MG/0.5 ML NEB SOLUTION NEB SCH ×4 (02:00→20:09)
[2017-10-06] MEDS: IPRATROPIUM BROMIDE 0.5 MG/2.5 ML NEB SOLUTION NEB SCH ×4 (02:00→20:09)
[2017-10-06] MEDS: OxyCODONE HCL/ACETAMINOPHEN 5-325 MG TABLET PO SCH ×4 (02:42→20:31)
[2017-10-06 07:28] VITALS: BP 133/65
[2017-10-06 07:29] LABS: GLUCOMETER DEV NAME(LOC) 6N 2D; GLUCOSE,POINT OF CARE 98 MG/DL (70-110)
[2017-10-06] MEDS: CARVEDILOL 3.125 MG TABLET PO SCH (08:05)
[2017-10-06] MEDS: MetFORMIN HCL 500 MG TABLET PO SCH ×2 (08:05→17:20)
[2017-10-06] MEDS: VENLAFAXINE HCL 75 MG ER CAPSULE PO SCH (08:06)
[2017-10-06] MEDS: AmLODIPine BESYLATE 5 MG TABLET PO SCH (08:06)
[2017-10-06] MEDS: METOCLOPRAMIDE HCL 5 MG TABLET PO SCH ×3 (08:06→20:31)
[2017-10-06] MEDS: BusPIRone HCL 10 MG TABLET PO SCH ×3 (08:06→20:31)
[2017-10-06] MEDS: MONTELUKAST SODIUM 10 MG TABLET PO SCH (08:06)
[2017-10-06] MEDS: FOLIC ACID 1 MG TABLET PO SCH (08:08)
[2017-10-06] MEDS: INSULIN LISPRO 100 UNITS/ML SQ PRN ×2 (11:26→17:19)
[2017-10-06 11:29] LABS: GLUCOMETER DEV NAME(LOC) 6N 2D; GLUCOSE,POINT OF CARE 107 MG/DL (70-110)
[2017-10-06 11:42] VITALS: BP 133/67
[2017-10-06 15:45] VITALS: BP 135/77
[2017-10-06 17:53] LABS: GLUCOMETER DEV NAME(LOC) 6N 2D; GLUCOSE,POINT OF CARE 97 MG/DL (70-110)
[2017-10-06 19:21] VITALS: BP 152/84
[2017-10-06] MEDS: TraZODone HCL 50 MG TABLET PO SCH (20:31)
[2017-10-06 20:43] LABS: GLUCOMETER DEV NAME(LOC) 6N 1E; GLUCOSE,POINT OF CARE 116 MG/DL (70-110)
[2017-10-07 00:18] VITALS: BP 138/65
[2017-10-07] MEDS: ALBUTEROL SULFATE 2.5 MG/0.5 ML NEB SOLUTION NEB SCH ×4 (02:00→20:05)
[2017-10-07] MEDS: IPRATROPIUM BROMIDE 0.5 MG/2.5 ML NEB SOLUTION NEB SCH ×4 (02:00→20:05)
[2017-10-07] MEDS: OxyCODONE HCL/ACETAMINOPHEN 5-325 MG TABLET PO SCH ×4 (02:04→20:03)
[2017-10-07 04:00] VITALS: BP 141/70
[2017-10-07 05:34] LABS: GLUCOMETER DEV NAME(LOC) 6N 2D; GLUCOSE,POINT OF CARE 84 MG/DL (70-110)
[2017-10-07 06:41] LABS: BASOPHILS % (AUTO) 1.2 % (0.0-2.0); EOSINOPHILS % (AUTO) 3.2 % (1.0-6.0); HEMATOCRIT 41.6 % (36-46); HEMOGLOBIN 14.1 g/dL (12.0-16.0); LYMPHOCYTES # (AUTO) 3.6 K/uL (1.0-4.8); LYMPHOCYTES % (AUTO) 43.3 % (22.0-44.0); MEAN CORPUSCULAR HEMOGLOBIN 29.4 pg (26.0-34.0); MEAN CORPUSCULAR HGB CONC 33.9 G/dL (31.0-37.0); MEAN CORPUSCULAR VOLUME 87 fL (80-100); MONOCYTES # (AUTO) 0.6 K/uL (0.1-1.0); MONOCYTES % (AUTO) 7.3 % (2.0-9.0); NEUTROPHILS # (AUTO) 3.7 K/uL (1.8-7.7); PLATELET COUNT (AUTO) 314 K/uL (150-450); RED CELL DISTRIBUTION WIDTH 14.2 % (11.5-14.5)
[2017-10-07 07:03] LABS: ANION GAP 9 mmol/L (8-16); CALCIUM, TOTAL 10.3 mg/dL (8.8-10.5); CARBON DIOXIDE 27 mmol/L (22-29); CHLORIDE 98 mmol/L (98-107); CREATININE 0.82 mg/dL (0.60-1.30); GLOMERULAR FILTR. RATE CALC > 60 mL/min (>60); GLUCOSE,RANDOM 89 mg/dL (70-110); POTASSIUM 4.5 mmol/L (3.5-5.1); SODIUM SERUM 134 mmol/L (136-145); UREA NITROGEN, BLOOD 21 mg/dL (7-18)
[2017-10-07 07:29] VITALS: BP 105/59
[2017-10-07] MEDS: HEPARIN SODIUM,PORCINE 5,000 UNITS/ML VIAL SQ SCH ×3 (08:16→23:05)
[2017-10-07] MEDS: FOLIC ACID 1 MG TABLET PO SCH (08:17)
[2017-10-07] MEDS: AmLODIPine BESYLATE 5 MG TABLET PO SCH (08:17)
[2017-10-07] MEDS: MetFORMIN HCL 500 MG TABLET PO SCH ×2 (08:17→17:10)
[2017-10-07] MEDS: MONTELUKAST SODIUM 10 MG TABLET PO SCH (08:17)
[2017-10-07] MEDS: VENLAFAXINE HCL 75 MG ER CAPSULE PO SCH (08:17)
[2017-10-07] MEDS: BusPIRone HCL 10 MG TABLET PO SCH ×3 (08:17→20:03)
[2017-10-07] MEDS: CARVEDILOL 3.125 MG TABLET PO SCH (08:18)
[2017-10-07] MEDS: METOCLOPRAMIDE HCL 5 MG TABLET PO SCH ×3 (08:19→20:03)
[2017-10-07 11:33] VITALS: BP 138/73
[2017-10-07] MEDS: INSULIN LISPRO 100 UNITS/ML SQ PRN ×2 (12:45→17:10)
[2017-10-07 15:32] VITALS: BP 146/73
[2017-10-07 19:38] LABS: GLUCOMETER DEV NAME(LOC) 6N 1E; GLUCOSE,POINT OF CARE 123 MG/DL (70-110)
[2017-10-07 19:39] LABS: GLUCOMETER DEV NAME(LOC) 6N 2D; GLUCOSE,POINT OF CARE 135 MG/DL (70-110)
[2017-10-07 19:49] VITALS: BP 139/66
[2017-10-07] MEDS: TraZODone HCL 50 MG TABLET PO SCH (20:03)
[2017-10-07 22:49] LABS: GLUCOMETER DEV NAME(LOC) 6N 1E; GLUCOSE,POINT OF CARE 119 MG/DL (70-110)
[2017-10-08] VITALS (7 sets, daily range): BP systolic 116–161; BP diastolic 49–74
[2017-10-08] MEDS: OxyCODONE HCL/ACETAMINOPHEN 5-325 MG TABLET PO SCH ×4 (01:53→21:00)
[2017-10-08] MEDS: IPRATROPIUM BROMIDE 0.5 MG/2.5 ML NEB SOLUTION NEB SCH ×4 (02:00→19:47)
[2017-10-08] MEDS: ALBUTEROL SULFATE 2.5 MG/0.5 ML NEB SOLUTION NEB SCH ×4 (02:00→19:47)
[2017-10-08 07:03] LABS: GLUCOMETER DEV NAME(LOC) 6N 2D; GLUCOSE,POINT OF CARE 104 MG/DL (70-110)
[2017-10-08] MEDS: MetFORMIN HCL 500 MG TABLET PO SCH ×2 (09:09→16:55)
[2017-10-08] MEDS: BusPIRone HCL 10 MG TABLET PO SCH ×3 (09:10→20:14)
[2017-10-08] MEDS: AmLODIPine BESYLATE 5 MG TABLET PO SCH (09:10)
[2017-10-08] MEDS: CARVEDILOL 3.125 MG TABLET PO SCH (09:10)
[2017-10-08] MEDS: VENLAFAXINE HCL 75 MG ER CAPSULE PO SCH (09:10)
[2017-10-08] MEDS: FOLIC ACID 1 MG TABLET PO SCH (09:10)
[2017-10-08] MEDS: METOCLOPRAMIDE HCL 5 MG TABLET PO SCH ×3 (09:10→20:14)
[2017-10-08] MEDS: MONTELUKAST SODIUM 10 MG TABLET PO SCH (09:10)
[2017-10-08] MEDS: HEPARIN SODIUM,PORCINE 5,000 UNITS/ML VIAL SQ SCH ×3 (09:10→23:24)
[2017-10-08] MEDS: INSULIN LISPRO 100 UNITS/ML SQ PRN ×2 (11:55→20:13)
[2017-10-08 15:34] LABS: GLUCOMETER DEV NAME(LOC) 6N 1E; GLUCOSE,POINT OF CARE 155 MG/DL (70-110)
[2017-10-08 17:58] LABS: GLUCOMETER DEV NAME(LOC) 6N 2D; GLUCOSE,POINT OF CARE 103 MG/DL (70-110)
[2017-10-08] MEDS: TraZODone HCL 50 MG TABLET PO SCH (20:14)
[2017-10-08 23:44] LABS: GLUCOMETER DEV NAME(LOC) 6N 1E; GLUCOSE,POINT OF CARE 207 MG/DL (70-110)
[2017-10-09] MEDS: ALBUTEROL SULFATE 2.5 MG/0.5 ML NEB SOLUTION NEB SCH ×4 (01:45→19:46)
[2017-10-09] MEDS: IPRATROPIUM BROMIDE 0.5 MG/2.5 ML NEB SOLUTION NEB SCH ×4 (01:45→19:46)
[2017-10-09] MEDS: OxyCODONE HCL/ACETAMINOPHEN 5-325 MG TABLET PO SCH ×4 (02:30→20:20)
[2017-10-09 03:36] VITALS: BP 129/54
[2017-10-09 06:58] LABS: GLUCOMETER DEV NAME(LOC) 6N 1E; GLUCOSE,POINT OF CARE 81 MG/DL (70-110)
[2017-10-09 07:51] VITALS: BP 120/60
[2017-10-09] MEDS: HEPARIN SODIUM,PORCINE 5,000 UNITS/ML VIAL SQ SCH ×3 (08:15→23:52)
[2017-10-09] MEDS: MetFORMIN HCL 500 MG TABLET PO SCH ×2 (08:15→17:02)
[2017-10-09] MEDS: CARVEDILOL 3.125 MG TABLET PO SCH (08:15)
[2017-10-09] MEDS: METOCLOPRAMIDE HCL 5 MG TABLET PO SCH ×3 (08:15→20:20)
[2017-10-09] MEDS: BusPIRone HCL 10 MG TABLET PO SCH ×3 (08:15→20:20)
[2017-10-09] MEDS: VENLAFAXINE HCL 75 MG ER CAPSULE PO SCH (08:15)
[2017-10-09] MEDS: MAGNESIUM HYDROXIDE SUSPENSION 30 ML UDCUP PO PRN (08:15)
[2017-10-09] MEDS: FOLIC ACID 1 MG TABLET PO SCH (08:15)
[2017-10-09] MEDS: MONTELUKAST SODIUM 10 MG TABLET PO SCH (08:15)
[2017-10-09] MEDS: AmLODIPine BESYLATE 5 MG TABLET PO SCH (08:16)
[2017-10-09 15:48] VITALS: BP 134/57
[2017-10-09 17:14] LABS: GLUCOMETER DEV NAME(LOC) 6N 2D; GLUCOSE,POINT OF CARE 114 MG/DL (70-110)
[2017-10-09 19:44] LABS: GLUCOMETER DEV NAME(LOC) 6N 1E; GLUCOSE,POINT OF CARE 127 MG/DL (70-110)
[2017-10-09 19:57] VITALS: BP 136/61
[2017-10-09] MEDS: TraZODone HCL 50 MG TABLET PO SCH (20:20)
[2017-10-09] MEDS: INSULIN LISPRO 100 UNITS/ML SQ PRN (20:30)
[2017-10-09 21:58] LABS: GLUCOMETER DEV NAME(LOC) 6N 1E; GLUCOSE,POINT OF CARE 157 MG/DL (70-110)
[2017-10-09 23:41] VITALS: BP 114/53
[2017-10-10] MEDS: ALBUTEROL SULFATE 2.5 MG/0.5 ML NEB SOLUTION NEB SCH ×4 (01:46→20:00)
[2017-10-10] MEDS: IPRATROPIUM BROMIDE 0.5 MG/2.5 ML NEB SOLUTION NEB SCH ×4 (01:46→20:00)
[2017-10-10 04:00] VITALS: BP 148/69
[2017-10-10] MEDS: OxyCODONE HCL/ACETAMINOPHEN 5-325 MG TABLET PO SCH ×4 (04:50→20:33)
[2017-10-10 06:39] LABS: GLUCOMETER DEV NAME(LOC) 6N 2D; GLUCOSE,POINT OF CARE 84 MG/DL (70-110)
[2017-10-10 07:56] VITALS: BP 131/56
[2017-10-10] MEDS: HEPARIN SODIUM,PORCINE 5,000 UNITS/ML VIAL SQ SCH ×2 (08:07→16:12)
[2017-10-10] MEDS: FOLIC ACID 1 MG TABLET PO SCH (08:10)
[2017-10-10] MEDS: AmLODIPine BESYLATE 5 MG TABLET PO SCH (08:10)
[2017-10-10] MEDS: BusPIRone HCL 10 MG TABLET PO SCH ×3 (08:10→20:32)
[2017-10-10] MEDS: METOCLOPRAMIDE HCL 5 MG TABLET PO SCH ×3 (08:10→20:33)
[2017-10-10] MEDS: CARVEDILOL 3.125 MG TABLET PO SCH (08:10)
[2017-10-10] MEDS: VENLAFAXINE HCL 75 MG ER CAPSULE PO SCH (08:10)
[2017-10-10] MEDS: MONTELUKAST SODIUM 10 MG TABLET PO SCH (08:10)
[2017-10-10] MEDS: MetFORMIN HCL 500 MG TABLET PO SCH ×2 (08:11→18:05)
[2017-10-10 11:20] VITALS: BP 110/58
[2017-10-10 13:54] LABS: GLUCOMETER DEV NAME(LOC) 6N 2D; GLUCOSE,POINT OF CARE 130 MG/DL (70-110)
[2017-10-10 15:43] VITALS: BP 135/60
[2017-10-10 17:38] LABS: GLUCOMETER DEV NAME(LOC) 6N 2D; GLUCOSE,POINT OF CARE 89 MG/DL (70-110)
[2017-10-10 19:48] VITALS: BP 142/57
[2017-10-10] MEDS: TraZODone HCL 50 MG TABLET PO SCH (20:32)
[2017-10-10] MEDS: INSULIN LISPRO 100 UNITS/ML SQ PRN (21:11)
[2017-10-11] VITALS (7 sets, daily range): BP systolic 99–156; BP diastolic 43–76
[2017-10-11] MEDS: HEPARIN SODIUM,PORCINE 5,000 UNITS/ML VIAL SQ SCH ×4 (00:29→23:54)
[2017-10-11] MEDS: IPRATROPIUM BROMIDE 0.5 MG/2.5 ML NEB SOLUTION NEB SCH ×4 (02:00→20:06)
[2017-10-11] MEDS: ALBUTEROL SULFATE 2.5 MG/0.5 ML NEB SOLUTION NEB SCH ×4 (02:00→20:06)
[2017-10-11 02:04] LABS: GLUCOMETER DEV NAME(LOC) 6N 2D; GLUCOSE,POINT OF CARE 167 MG/DL (70-110)
[2017-10-11] MEDS: OxyCODONE HCL/ACETAMINOPHEN 5-325 MG TABLET PO SCH ×4 (03:11→20:33)
[2017-10-11 09:13] LABS: GLUCOSE,POINT OF CARE 101 MG/DL (70-110)
[2017-10-11 09:14] LABS: GLUCOMETER DEV NAME(LOC) 6N 2D
[2017-10-11] MEDS: MONTELUKAST SODIUM 10 MG TABLET PO SCH (09:20)
[2017-10-11] MEDS: CARVEDILOL 3.125 MG TABLET PO SCH (09:20)
[2017-10-11] MEDS: FOLIC ACID 1 MG TABLET PO SCH (09:20)
[2017-10-11] MEDS: MetFORMIN HCL 500 MG TABLET PO SCH ×2 (09:20→18:03)
[2017-10-11] MEDS: AmLODIPine BESYLATE 5 MG TABLET PO SCH (09:20)
[2017-10-11] MEDS: BusPIRone HCL 10 MG TABLET PO SCH ×3 (09:21→20:33)
[2017-10-11] MEDS: VENLAFAXINE HCL 75 MG ER CAPSULE PO SCH (09:21)
[2017-10-11] MEDS: METOCLOPRAMIDE HCL 5 MG TABLET PO SCH ×3 (09:21→20:33)
[2017-10-11 12:24] LABS: GLUCOMETER DEV NAME(LOC) 6N 1E; GLUCOSE,POINT OF CARE 113 MG/DL (70-110)
[2017-10-11 17:54] LABS: GLUCOMETER DEV NAME(LOC) 6N 2D; GLUCOSE,POINT OF CARE 116 MG/DL (70-110)
[2017-10-11] MEDS: TraZODone HCL 50 MG TABLET PO SCH (20:34)
[2017-10-11] MEDS: INSULIN LISPRO 100 UNITS/ML SQ PRN (20:43)
[2017-10-11 21:59] LABS: GLUCOMETER DEV NAME(LOC) 6N 2D; GLUCOSE,POINT OF CARE 177 MG/DL (70-110)
[2017-10-12] MEDS: IPRATROPIUM BROMIDE 0.5 MG/2.5 ML NEB SOLUTION NEB SCH ×4 (02:00→20:20)
[2017-10-12] MEDS: ALBUTEROL SULFATE 2.5 MG/0.5 ML NEB SOLUTION NEB SCH ×4 (02:00→20:20)
[2017-10-12] MEDS: OxyCODONE HCL/ACETAMINOPHEN 5-325 MG TABLET PO SCH ×4 (02:30→20:12)
[2017-10-12 04:48] VITALS: BP 104/55
[2017-10-12 05:43] LABS: GLUCOMETER DEV NAME(LOC) 6N 1E; GLUCOSE,POINT OF CARE 86 MG/DL (70-110)
[2017-10-12 07:00] VITALS: BP 117/58
[2017-10-12] MEDS: FOLIC ACID 1 MG TABLET PO SCH (09:06)
[2017-10-12] MEDS: MONTELUKAST SODIUM 10 MG TABLET PO SCH (09:06)
[2017-10-12] MEDS: VENLAFAXINE HCL 75 MG ER CAPSULE PO SCH (09:06)
[2017-10-12] MEDS: BusPIRone HCL 10 MG TABLET PO SCH ×3 (09:07→20:12)
[2017-10-12] MEDS: HEPARIN SODIUM,PORCINE 5,000 UNITS/ML VIAL SQ SCH ×3 (09:07→23:59)
[2017-10-12] MEDS: METOCLOPRAMIDE HCL 5 MG TABLET PO SCH ×3 (09:07→20:12)
[2017-10-12] MEDS: CARVEDILOL 3.125 MG TABLET PO SCH (09:08)
[2017-10-12] MEDS: MetFORMIN HCL 500 MG TABLET PO SCH ×2 (09:21→18:04)
[2017-10-12 11:00] VITALS: BP_SYST 108; BP_SYST 185; BP_DIAS 73
[2017-10-12] MEDS: INSULIN LISPRO 100 UNITS/ML SQ PRN ×2 (12:05→21:51)
[2017-10-12] MEDS: AmLODIPine BESYLATE 5 MG TABLET PO SCH (15:47)
[2017-10-12 15:58] VITALS: BP_SYST 118; BP_SYST 181; BP_DIAS 58; BP_DIAS 74
[2017-10-12 17:09] LABS: GLUCOMETER DEV NAME(LOC) 6N 2D; GLUCOSE,POINT OF CARE 113 MG/DL (70-110)
[2017-10-12 17:09] LABS: GLUCOMETER DEV NAME(LOC) 6N 2D; GLUCOSE,POINT OF CARE 200 MG/DL (70-110)
[2017-10-12 20:07] VITALS: BP 152/68
[2017-10-12] MEDS: TraZODone HCL 50 MG TABLET PO SCH (20:12)
[2017-10-12 21:34] LABS: GLUCOMETER DEV NAME(LOC) 6N 1E; GLUCOSE,POINT OF CARE 151 MG/DL (70-110)
[2017-10-12 23:42] VITALS: BP 101/46
[2017-10-13] MEDS: ALBUTEROL SULFATE 2.5 MG/0.5 ML NEB SOLUTION NEB SCH ×3 (02:00→13:59)
[2017-10-13] MEDS: IPRATROPIUM BROMIDE 0.5 MG/2.5 ML NEB SOLUTION NEB SCH ×3 (02:00→14:00)
[2017-10-13] MEDS: OxyCODONE HCL/ACETAMINOPHEN 5-325 MG TABLET PO SCH ×3 (02:30→15:06)
[2017-10-13 04:00] VITALS: BP 124/60
[2017-10-13 06:13] LABS: GLUCOMETER DEV NAME(LOC) 6N 2D; GLUCOSE,POINT OF CARE 84 MG/DL (70-110)
[2017-10-13 08:00] VITALS: BP 98/67
[2017-10-13] MEDS: MONTELUKAST SODIUM 10 MG TABLET PO SCH (08:34)
[2017-10-13] MEDS: CARVEDILOL 3.125 MG TABLET PO SCH (08:34)
[2017-10-13] MEDS: VENLAFAXINE HCL 75 MG ER CAPSULE PO SCH (08:34)
[2017-10-13] MEDS: MetFORMIN HCL 500 MG TABLET PO SCH ×2 (08:34→18:12)
[2017-10-13] MEDS: HEPARIN SODIUM,PORCINE 5,000 UNITS/ML VIAL SQ SCH ×2 (08:34→16:30)
[2017-10-13] MEDS: BusPIRone HCL 10 MG TABLET PO SCH ×2 (08:35→16:30)
[2017-10-13] MEDS: METOCLOPRAMIDE HCL 5 MG TABLET PO SCH ×2 (08:35→16:30)
[2017-10-13] MEDS: AmLODIPine BESYLATE 5 MG TABLET PO SCH (08:36)
[2017-10-13] MEDS: FOLIC ACID 1 MG TABLET PO SCH (08:38)
[2017-10-13 10:56] VITALS: BP 95/66
[2017-10-13 14:29] LABS: GLUCOMETER DEV NAME(LOC) 6N 1E; GLUCOSE,POINT OF CARE 98 MG/DL (70-110)
[2017-10-13 16:00] VITALS: BP 142/71
[2017-10-13 18:48] LABS: GLUCOMETER DEV NAME(LOC) 6N 1E; GLUCOSE,POINT OF CARE 118 MG/DL (70-110)
== END 2017-10-13 18:30 | disposition home or self-care (01) | DRG 690 ==
LOC: EMS 23:15 → 6N 09-25 08:36
PROVIDERS: ADMIT Internal Medicine; ATTEND Internal Medicine
DX: N39.0 Urinary tract infection, site not specified (principal); E11.9 Type 2 diabetes mellitus without complications; E78.00 Pure hypercholesterolemia, unspecified; F03.90 Unspecified dementia, unspecified severity, without behavioral disturbance, psychotic disturbance, mood disturbance, and anxiety; I11.0 Hypertensive heart disease with heart failure; I25.10 Atherosclerotic heart disease of native coronary artery without angina pectoris; J44.9 Chronic obstructive pulmonary disease, unspecified; I50.9 Heart failure, unspecified; M54.9 Dorsalgia, unspecified; F32.9 Major depressive disorder, single episode, unspecified; K59.00 Constipation, unspecified; K21.9 Gastro-esophageal reflux disease without esophagitis; Z96.649 Presence of unspecified artificial hip joint; Z88.8 Allergy status to other drugs, medicaments and biological substances; Z79.84 Long term (current) use of oral hypoglycemic drugs; Z79.899 Other long term (current) drug therapy; Z87.440 Personal history of urinary (tract) infections; Z87.891 Personal history of nicotine dependence; Z90.710 Acquired absence of both cervix and uterus; Z87.01 Personal history of pneumonia (recurrent)
CPT/HCPCS: 51702; 83036; 83735; 84443; 87086; 94640; 97161; 97165; 97535; 99285; G0480; J0696; J1644; J2543; J7060

== ENCOUNTER → 2018-02-06 | Outpatient (CLI) | payer MEDICARE, OTHER ==
[~2018-02-06] MED LIST changes: +METF-960 PO; -METF500T6 PO
== END | disposition home or self-care (01) ==
LOC: RADMN 12:35
PROVIDERS: ATTEND Internal Medicine Geriatric Medicine
DX: I63.89 Other cerebral infarction (principal); I67.2 Cerebral atherosclerosis; I67.82 Cerebral ischemia; G91.9 Hydrocephalus, unspecified
CPT/HCPCS: 70450